=== PATIENT | female | born 1990 | race Caucasian/White ===

== ENCOUNTER → 2019-10-21 | Outpatient (CLI) | payer BC | LOC: MC.RAD 08:05 | DX: N64.4 Mastodynia (principal) ==

== ENCOUNTER → 2020-08-14 | Outpatient (CLI) | payer BC | LOC: MC.RAD 08:00 | DX: N63.11 Unspecified lump in the right breast, upper outer quadrant (principal); N63.13 Unspecified lump in the right breast, lower outer quadrant ==

== ENCOUNTER → 2020-08-25 | Outpatient (CLI) | payer BC | LOC: MC.RAD 07:38 | DX: N63.10 Unspecified lump in the right breast, unspecified quadrant (principal); Z98.82 Breast implant status ==